=== PATIENT | female | born 1970 | race Caucasian/White ===

== ENCOUNTER 2016-12-04 11:40 | Emergency (ER) | payer OTHER ==
--- NOTE | ~2016-12-04 | CT2 ---
[facility] A Service of [facility] & [facility] RADIOLOGY TEXT RESULTS PATIENT: KATHLEEN BOYKIN LOCATION: [facility] : 70 UNIT #: [id number] AGE: [address]: Chidi Mancini MD SEX: F ORDER DR: [id number] [facility] [address] [place], [place] [address] [id number] MR#: [id number] #: [id number] NAME: KATHLEEN BOYKIN : 1970 SEX: F STUDY DATE/TIME: 12/04/2016 14:14 UNIT: [facility] ROOM: STUDY DESCRIPTION: CT Abd and Pelv W Cont Attending Physician: Chidi Mancini M.D. Ordering Physician: Chidi Mancini M.D. Primary Care Physician: No Primary Care Physician MEDICAL IMAGING REPORT This report is preliminary unless electronic signature is present EXAM CT abdomen and pelvis. INDICATION Fall from a 3-story height approximately 5 days ago. Right hip and right lower quadrant pain. TECHNIQUE CT of the abdomen and pelvis utilizing 100 mL Isovue-370 IV contrast. Coronal and sagittal reconstructions were obtained. This CT exam was performed with one or more of the following radiation dose reduction techniques: automatic exposure control, adjustment of mA and/or kV according to patient size, and iterative reconstruction. COMPARISON CT abdomen and pelvis, 05/17/2015. FINDINGS ABDOMEN: The solid abdominal organs enhance normally. Gallbladder is not distended. The bowel is not dilated. The appendix is normal. The abdominal aorta is normal in caliber. No retroperitoneal hematoma. There is a retroaortic left renal vein. PELVIS: Uterus is enlarged. There is a heterogeneous enhancing fibroid in the myometrium of the posterior fundus. This large fibroid measures up to 9.9 x 7 x 8.1 cm. This likely has a submucosal component. There is a small volume of free fluid in the pelvis. Bladder is unremarkable. The ovaries are not clearly identified. There is minimal displaced fractures of the right superior pubic ramus and right inferior pubic ramus. There is a fracture through the right sacrum. The pubic ramus fracture extends into the pubic symphysis. The right STS. [facility] A Service of [facility] & [facility] RADIOLOGY TEXT RESULTS PAT[facility]: KATH[facility]IN [id number] 70 UNIT #: [id number] AGE: [address]: Chidi Mancini MD SEX: F ORDER DR: femoral head articulates normally with acetabulum. No hip effusion. Reconstructed images of the lumbar spine are within normal limits. IMPRESSION 1. Acute fractures of the right sacrum, right superior pubic ramus, and right inferior pubic ramus. 2. Large myometrial fibroid measuring 9.9 cm. Dictated by... Polo Tatum M.D. THIS IS AN ELECTRONICALLY VERIFIED REPORT Polo Tatum M.D. at 12/05/2016 8:03 AM BRYANT/luis TD: 12/04/2016 20:07 JOB #: [id number] MEDICAL IMAGING REPORT Page 1 of 1 COPY
[2016-12-04 15:01] LABS: POC - CREATININE 0.67 mg/dL (0.44-1.03); POC - GFR >60.0 mL/min (>60)
== END 2016-12-04 15:32 | disposition home or self-care (01) ==
LOC: CED 11:40
PROVIDERS: Emergency Medicine
DX: S32.10XA Unspecified fracture of sacrum, initial encounter for closed fracture (principal); F17.200 Nicotine dependence, unspecified, uncomplicated; W18.30XA Fall on same level, unspecified, initial encounter; Y92.098 Other place in other non-institutional residence as the place of occurrence of the external cause
CPT/HCPCS: 36415; 74177; 82565; 84703; 99284; Q9967